=== PATIENT | female | born 1975 | race Hispanic/Latino ===

== ENCOUNTER 2016-06-11 13:04 | Observation (INO) | payer MEDICARE ==
[2016-06-11 13:04] VITALS: BMI 22.9
[2016-06-11] MEDS ORDERED: Sodium Chloride 0.9% 1,000 ML IV STA (13:29)
--- NOTE | 2016-06-11 13:32 | ED PDOC ---
Arrival/HPI - General Chief Complaint: Abdominal Pain Time Seen by Provider: 06/11/16 13:25 Historian: Patient - History of Present Illness Narrative History of Present Illness (Text): 06/11/16 14:29 Patient is a 40 yo female with past medical history of pancreatic divisum, has pancreatic stent with recent replacement 3 days ago, presents with history of upper abdominal pain, nausea/vomiting, and decreased appetite over the past three days. States pain is typical of past episodes, not changed in character or location. Denies fevers. Denies chest pain or shortness of breath. Denies hematemesis or dark or bloody stools. Past Medical History - Infectious Disease Hx of Infectious Diseases: None - Tetanus Immunization Tetanus Immunization: Unknown - Cardiac Hx Cardiac Disorders: No - Pulmonary Hx Asthma: Yes - Neurological Hx Neurological Disorder: No - HEENT Hx HEENT Disorder: Yes (wears contact lense) - Renal Hx Renal Disorder: No - Endocrine/Metabolic Hx Endocrine Disorders: No - Hematological/Oncological Hx Blood Disorders: No Hx Blood Transfusions: No Hx Blood Transfusion Reaction: No - Integumentary Hx Dermatological Disorder: No - Musculoskeletal/Rheumatological Hx Musculoskeletal Disorders: No Hx Falls: No - Gastrointestinal Hx Pancreatitis: Yes (pancreatic divisum) - Genitourinary/Gynecological Hx Genitourinary Disorders: No - Psychiatric Hx Bipolar Disorder: Yes Hx Emotional Abuse: No Hx Physical Abuse: No Hx Substance Use: No - Surgical History Other/Comment: Pancreas stent , PICC - Anesthesia Hx Anesthesia: Yes - Suicidal Assessment Feels Threatened In Home Enviroment: No Family/Social History Family/Social History: Unknown Family HX Smoking Status: Light Smoker < 10 Cigarettes Daily Hx Alcohol Use: No Hx Substance Use: No Allergies/Home Meds Allergies/Adverse Reactions: Allergies Penicillins Allergy (Verified 06/11/16 13:13) ANAPHYLAXIS Home Medications: Home Meds Medication Instructions Recorded Confirmed Control 1 tab PO DAILY 10/25/14 06/11/16 Methadone 5 mg PO BID PRN 06/11/16 06/11/16 Review of Systems - Review of Systems Constitutional: Fatigue. absent: Fevers Eyes: absent: Vision Changes ENT: absent: Hearing Changes Respiratory: absent: SOB Cardiovascular: absent: Chest Pain, NICOLAS Gastrointestinal: Abdominal Pain, Nausea, Vomiting, Appetite Changes. absent: Constipation, Diarrhea, Hematochezia, Hematemesis Musculoskeletal: absent: Back Pain Skin: absent: Rash Neurological: absent: Headache, Dizziness Endocrine: absent: Polyuria, Polydipsia Hemo/Lymphatic: absent: Easy Bleeding Physical Exam - Physical Exam Narrative Physical Exam (Text): Head: Atraumatic. Normocephalic. Eyes: PERRL. EOMI. Conjunctivae are not pale. ENT: Mucous membranes are moist and intact. Oropharynx is clear and symmetric. Neck: Supple. Full ROM. No JVD. No lymphadenopathy. Cardiovascular: Regular rate. Regular rhythm. No murmurs, rubs, or gallops. Distal pulses are 2+ and symmetric. Pulmonary/Chest: No evidence of respiratory distress. Clear to auscultation bilaterally. No wheezing, rales or rhonchi. Abdominal: Moderate epigastric pain with normoactive bowel sounds, no lower abdominal pain, no pulsatile masses. Back: No CVA tenderness. Extremities: No edema. No cyanosis. No clubbing. Full range of motion in all extremities. No calf tenderness. PICC lined in left upper extremity clean, dry and intact. Skin: Skin is warm and dry. No petechiae. No purpura. Neurological: Alert, awake, and oriented to person, place, time, and situation. Normal speech. Motor and sensory exam intact. Psychiatric: Good eye contact. Normal interaction, affect, and behavior. Vital Signs Reviewed: Yes Vital Signs Temp Pulse Resp BP Pulse Ox 06/11/16 22:03 70 16 138/77 97 06/11/16 18:01 97.5 F L 68 20 125/80 100 06/11/16 15:01 69 18 115/71 98 06/11/16 13:22 97.9 F 73 18 117/75 98 06/11/16 13:16 97.9 F 73 16 117/75 96 Temperature: Afebrile Appearance: Positive for: Uncomfortable Pain Distress: Moderate Mental Status: Positive for: Alert and Oriented X 3 Medical Decision Making ED Course and Treatment: Patient's case reviewed with Dr. Villagran, prior to arrival, who is the patient' s inspector aligning and has been following most recent symptoms. Patient's history reviewed where she has had history of chronic pancreatitis/divisum, recently with stent change. On exam she is diffusely tender, concentrated to epigastric region. NO urinary symptoms, no chest pain or sob or chills. As per Dr. Villagran, patient initiated on iv fluids and pain medication, risks/ side effects/addiction potential reviewed with patient prior to administration although patient is currently taking oral narcotics and pain has broken through. With serial exams, no improvement in pain after multiple boluses, thus CT ordered as pain still severe after medication. CT ordered: CT Abdomen and Pelvis Without Intravenous Contrast. FINDINGS: Lower thorax: Heart size is normal. Lung bases are mildly hyperinflated. There is patchy airspace disease greatest at the left base. There is minimal scarring at the lung bases ABDOMEN: Gallbladder and bile ducts: Gallbladder is surgically absent. Common bile duct is prominent. Pancreas: There are coarse calcifications in the pancreas greatest in the body and tail. There is a pancreatic stent. There is minimal peripancreatic stranding. Stomach and bowel: Stomach is almost completely empty. Rotation is normal. Proximal jejunal loops are mildly distended with air-fluid levels. Distention decreases distally. Appendix and terminal ileum are unremarkable. There is a moderately large amount of stool throughout the colon. ABDOMEN and PELVIS: Intraperitoneal space: There is no significant fluid.There is no free air. Bones/joints: There are degenerative changes in the osseus structures. Soft tissues: There is a fatcontaining umbilical hernia. Vasculature: There are multiple phleboliths. There are vascular calcifications. IMPRESSION: Chronic calcific pancreatitis with pancreatic stent, minimal peripancreatic stranding inflammation versus scarring; cholecystectomy with dilated common duct Dictated and Authenticated by: Alissa Farris MD 06/11/2016 8:23 PM Eastern Time ([place] & [place]) As patient with persistent severe pain will be admitted for observation with GI consultation, plan reviewed with Dr. Vlilagran, will admit to hospitalist. - Lab Interpretations Lab Results: 06/11/16 14:05 06/11/16 14:05 Lab Results 06/11/16 14:05: WBC 9.2, RBC 4.14, Hgb 12.8, Hct 37.2, MCV 89.9, MCH 30.9, MCHC 34.4, RDW 14.2, Plt Count 261, MPV 10.6, Gran % 63.4, Lymph % (Auto) 29.6, [place] % (Auto) 3.7, Eos % (Auto) 3.0, Baso % (Auto) 0.3, Gran # 5.83, Lymph # 2.7, [place] # 0.3, Eos # 0.3, Baso # 0.03, Sodium 137, Potassium 4.0, Chloride 104, Carbon Dioxide 24, Anion Gap 13, BUN 9, Creatinine 0.7, Est GFR ( Amer) > 60, Est GFR (Non-Af Amer) > 60, Random Glucose 105, Calcium 8.8, Total Bilirubin 0.5, AST 28, ALT 26, Alkaline Phosphatase 99, Total Protein 7.1, Albumin 3.8, Globulin 3.3, Albumin/Globulin Ratio 1.2, Amylase 40, Lipase 29 06/11/16 13:45: Urine Color Yellow, Urine Appearance Turbid, Urine pH 6.0, Ur Specific Williamson 1.025, Urine Protein 30 H, Urine Glucose (UA) Negative, Urine Ketones Trace H, Urine Blood Small H, Urine Nitrate Negative, Urine Bilirubin Small H, Urine Urobilinogen 0.2, Ur Leukocyte Esterase Trace H, Urine RBC 1 - 3 , Urine WBC 1 - 3, Ur Epithelial Cells Many, Urine Bacteria Many, Urine HCG, Qual Negative - RAD Interpretation Radiology Orders: 06/11/16 18:03 ABD & PELVIS W/O PO OR IV CONT [CT] Stat - Medication Orders Current Medication Orders: Discontinued Medications Albuterol/Ipratropium (Duoneb 3 Mg/0.5 Mg (3 Ml) Ud) 3 ml IH [id number] PRN PRN Reason: Wheezing Clonazepam (Klonopin) 0.25 mg PO Q8 PRN; Protocol PRN Reason: Anxiety Famotidine (Pepcid) 20 mg IVP STAT STA Stop: 06/11/16 13:30 Last Admin: 06/11/16 14:07 Dose: 20 MG IVP Administration Document 06/11/16 14:07 HI (Rec: 06/11/16 14:07 [id number] Charges for Administration # of IVP Administrations 1 Hydromorphone HCl (Dilaudid) 3 mg IVP STAT STA Stop: 06/11/16 13:33 Last Admin: 06/11/16 14:08 Dose: 3 MG IVP Administration Document 06/11/16 14:08 HI (Rec: 06/11/16 14:08 [id number][facility] Charges for Administration # of IVP Administrations 1 Hydromorphone HCl (Dilaudid) 3 mg IVP STAT STA Stop: 06/11/16 15:40 Last Admin: 06/11/16 15:56 Dose: 3 MG IVP Administration Document 06/11/16 15:56 HI (Rec: 06/11/16 15:56 [id number][facility] Charges for Administration # of IVP Administrations 1 Hydromorphone HCl (Dilaudid) 2 mg IVP STAT STA Stop: 06/11/16 17:20 Last Admin: 06/11/16 17:50 Dose: 2 MG IVP Administration Document 06/11/16 17:50 HI (Rec: 06/11/16 17:50 [id number][facility] Charges for Administration # of IVP Administrations 1 Hydromorphone HCl (Dilaudid) 2 mg IVP Q3 PRN PRN Reason: Pain, severe (8-10) Last Admin: 06/12/16 09:42 Dose: 2 MG MAR Pain Assessment Document 06/12/16 09:42 EVELYNE (Rec: 06/12/16 09:44 [facility] [id number]) Pain Reassessment Is this a pain reassessment? No Sleep Is patient sleeping during reassessment? No Presence of Pain Presence of Pain Yes Pain Scale Used Pain Scale Used Numeric Location Left, Right or Bilateral Left Upper or Lower Upper Pain Location Body Site Abdomen Description Description Constant Intensity of Pain at present 8 Pain Behavior Irritability Withdrawal from Touch Restlessness Facial Grimacing Alleviating Factors/Management Medication Techniques IVP Administration Document 06/12/16 09:42 EVELYNE (Rec: 06/12/16 09:44 [facility] [id number]) Charges for Administration # of IVP Administrations 1 Sodium Chloride (Sodium Chloride 0.9%) 1,000 mls @ 1,000 mls/hr IV .Q1H STA Stop: 06/11/16 14:28 Last Admin: 06/11/16 14:07 Dose: 1,000 MLS/HR eMAR Start Stop Document 06/11/16 14:07 HI (Rec: 06/11/16 14:07 [id number]) Intravenous Solution Start Date 06/11/16 Start Time 14:07 End Date 06/11/16 End time 15:07 Total Infusion Time 60 Sodium Chloride (Sodium Chloride 0.9%) 1,000 mls @ 150 mls/hr IV .Q6H40M [facility] Last Admin: 06/11/16 22:48 Dose: 150 MLS/HR eMAR Start Stop Document 06/11/16 22:48 PCO (Rec: 06/11/16 22:49 PCO [facility] [id number]) Intravenous Solution Start Date 06/11/16 Start Time 22:48 End Date 06/11/16 End time 04:50 Total Infusion Time -1078 Ondansetron HCl (Zofran Inj) 4 mg IVP STAT STA Stop: 06/11/16 13:30 Last Admin: 06/11/16 14:07 Dose: 4 MG IVP Administration Document 06/11/16 14:07 HI (Rec: 06/11/16 14:07 HI [id number]) Charges for Administration # of IVP Administrations 1 Ondansetron HCl (Zofran Inj) 4 mg IVP Q6 PRN PRN Reason: Nausea/Vomiting Last Admin: 06/12/16 06:32 Dose: 4 MG IVP Administration Document 06/12/16 06:32 PCO (Rec: 06/12/16 06:32 PCO [id number]) Charges for Administration # of IVP Administrations 1 Oxycodone HCl (Oxycodone Immediate Release Tab) 20 mg PO Q6H PRN PRN Reason: Pain, severe (8-10) Pantoprazole Sodium (Protonix Inj) 40 mg IVP DAILY [facility] Last Admin: 06/12/16 09:45 Dose: 40 MG IVP Administration Document 06/12/16 09:45 EVELYNE (Rec: 06/12/16 09:45 [id number]) Charges for Administration # of IVP Administrations 1 Quetiapine Fumarate (Seroquel) 200 mg PO DAILY RODOLFO PRN Reason: Protocol Last Admin: 06/12/16 09:44 Dose: 200 MG Behavioural Document 06/12/16 09:44 EVELYNE (Rec: 06/12/16 09:44 [id number]) Maintenance Maintenance Dose Yes Nonmedicinal Nonmedicinal Interventions Redirect Therapeutic Communication Give food/fluids Behavior Behavior for Medication: Anxiety Simethicone (Mylicon Liq) 40 mg PO QID PRN PRN Reason: Dyspepsia - Scribe Statement The provider has reviewed the documentation as recorded by the Rachide Rex Krishnan All medical record entries made by the Migdalia were at my direction and personally dictated by me. I have reviewed the chart and agree that the record accurately reflects my personal performance of the history, physical exam, medical decision making, and the department course for this patient. I have also personally directed, reviewed, and agree with the discharge instructions and disposition. Disposition/Present on Arrival - Present on Arrival Any Indicators Present on Arrival: No History of DVT/PE: No History of Uncontrolled Diabetes: No Urinary Catheter: No History of Decub. Ulcer: No History Surgical Site Infection Following: None - Disposition Have Diagnosis and Disposition been Completed?: Yes Diagnosis: Pancreatitis Disposition: HOSPITALIZED Disposition Time: 17:13 Patient Plan: Discharge Condition: GOOD
[2016-06-11 14:05] LABS: URINE APPEARANCE TURBID (CLEAR); URINE BILIRUBIN SMALL (NEGATIVE); URINE BLOOD SMALL (NEGATIVE); URINE COLOR YELLOW (YELLOW); URINE GLUCOSE (UA) NEGATIVE (NEGATIVE); URINE KETONE TRACE mg/dL (NEGATIVE); URINE LEUKOCYTE ESTERASE TRACE Leu/uL (NEGATIVE); URINE PROTEIN 30 mg/dL (<30 mg/dL); URINE UROBILINOGEN 0.2 E.U./dL (<1 E.U./dL)
[2016-06-11 14:07] LABS: URINE BACTERIA MANY (NEG); URINE EPITHELIAL CELLS MANY /hpf (0-5)
[2016-06-11 14:21] LABS: ADD MANUAL DIFF? NO
[2016-06-11 14:26] LABS: BASO # 0.03 [, K/mm3] (0.0-2.0); BASO % 0.3 % (0.0-3.0); EOS # 0.3 (0.0-0.7); GRAN # 5.83 (1.4-6.5); GRAN % 63.4 % (50.0-68.0); HEMATOCRIT 37.2 % (36.0-48.0); LYMPH # 2.7 (1.2-3.4); LYMPH % 29.6 % (22.0-35.0); MEAN CELL VOLUME 89.9 fL (80.0-105.0); MEAN CORPUSCULAR HEMOGLOBIN 30.9 pg (25.0-35.0); MEAN CORPUSCULAR HGB CONC 34.4 g/dl (31.0-37.0); MEAN PLATELET VOLUME 10.6 fl (7.0-11.0); MONO # 0.3 (0.1-0.6); MONO % 3.7 % (1.0-6.0); PLATELET COUNT 261 [, 10^3/uL] (120.0-450.0); RED CELL DISTRIBUTION WIDTH 14.2 % (11.5-14.5); WHITE BLOOD COUNT 9.2 [, 10^3/ul] (4.5-11.0)
[2016-06-11 14:35] LABS: ALB/GLOB RATIO 1.2 (1.1-1.8); ALKALINE PHOSPHATASE 99 U/L (38-133); ALT/SGPT 26 U/L (7-56); AMYLASE 40 U/L (35-125); AST/SGOT 28 U/L (15-39); BILIRUBIN,TOTAL 0.5 mg/dL (0.2-1.3); BLOOD UREA NITROGEN 9 mg/dL (7-21); CALCIUM 8.8 mg/dL (8.4-10.5); CARBON DIOXIDE 24 mmol/L (21-33); CHLORIDE 104 mmol/L (98-107); GFR AFRICAN-AMERICAN > 60; GLUCOSE,RANDOM 105 mg/dL (70-110); LIPASE 29 U/L (23-300); SODIUM 137 mmol/L (132-148); TOTAL PROTEIN 7.1 g/dL (5.8-8.3)
[2016-06-11] MEDS ORDERED: HYDROmorphone 2 mg/ml ISec IVP STA ×2 (15:32→17:19)
--- NOTE | 2016-06-11 19:40 | CP.PCM.HP ---
<Shaina Reynaga - Last Filed: 06/12/16 01:52> History of Present Illness - History of Present Illness History of Present Illness: PGY-[address] Barron Admission: Mild Acute on chronic pancreatis Patient is a 40 yo female with past medical history of pancreatic divisum at , has pancreatic stent with recent replacement 3 days ago and PICC 4 days ago, presents with worsening of chronic upper abdominal pain, (+) nausea, no vomiting, and decreased appetite over the past three days. Pt States that at baseline, abdominal pain localizes at LUQ, sharp, constant, 4-6/10 in pain scale. This am the pain suddenly worsened to 8-10/10, not changed in character or location. Pt called her outpt GI doc Dr. Villagran who adviced pt to come to ED. (+) sick contact, daughter strep throat. Denies recent change in medications , recent travel, change in food. In the ED, VSS. CBC, CMP all wnl. Amylase, lipase normal. Proteinura, blood in urine, many epithelial cell Pain controlled by dilaudid 3mg. CT Abdomen - ROS = Denies Fever. Denies chest pain or shortness of breath. Denies hematemesis or dark or bloody stools. PMH pancreatic divisum at Chronic pancreatitis Asthma Bipolar, anxiety contact lens PSH Pancreas stent replacment @ month, PICC OBGYN 1 elective , 1 live via vaginal delivery No period, on Oral contraceptive SH Active smoker 1 pack per week x recent years + electronic cigareete 1 once daily Past 10 years 1-2ppd Denies alcohol/drug All Penicillin Med Microgestin 1 tab PO DAILY Methadone [Methadone] 5 mg PO BID PRN Oxydodone 20 q6 PRN Duoneb 3q4 PRN Klonopin 0.5 TID PRN Simethicone 40 mg QID PRN Seroquel 200 daily Zofran 4q4 PRN PMD/GI Dr Villagran Present on Admission - Present on Admission Any Indicators Present on Admission: No Past Patient History - Infectious Disease Hx of Infectious Diseases: None - Tetanus Immunizations Tetanus Immunization: Unknown - Past Medical History & Family History Past Medical History?: Yes - Past Social History Smoking Status: Light Smoker < 10 Cigarettes Daily - CARDIAC Hx Cardiac Disorders: No - PULMONARY Hx Asthma: Yes - NEUROLOGICAL Hx Neurological Disorder: No - HEENT Hx HEENT Problems: Yes (wears contact lense) - RENAL Hx Chronic Kidney Disease: No - ENDOCRINE/METABOLIC Hx Endocrine Disorders: No - HEMATOLOGICAL/ONCOLOGICAL Hx Blood Disorders: No Hx Blood Transfusions: No Hx Blood Transfusion Reaction: No - INTEGUMENTARY Hx Dermatological Problems: No - MUSCULOSKELETAL/RHEUMATOLOGICAL Hx Musculoskeletal Disorders: No Hx Falls: No - GASTROINTESTINAL Hx Pancreatitis: Yes (pancreatic divisum) - GENITOURINARY/GYNECOLOGICAL Hx Genitourinary Disorders: No - PSYCHIATRIC Hx Bipolar Disorder: Yes Hx Emotional Abuse: No Hx Physical Abuse: No Hx Substance Use: No - SURGICAL HISTORY Other/Comment: Pancreas stent , PICC - ANESTHESIA Hx Anesthesia: Yes Meds Allergies/Adverse Reactions: Allergies Allergy/AdvReac Type Severity Reaction Status Date / Time Penicillins Allergy ANAPHYLAXIS Verified 06/11/16 13:13 Physical Exam - Constitutional Appears: No Acute Distress - Head Exam Head Exam: ATRAUMATIC, NORMOCEPHALIC - Eye Exam Eye Exam: EOMI, Normal appearance Pupil Exam: NORMAL ACCOMODATION - ENT Exam ENT Exam: Mucous Membranes Moist - Neck Exam Neck exam: Positive for: Normal Inspection Additional comments: supple - Respiratory Exam Respiratory Exam: Clear to Auscultation Bilateral, NORMAL BREATHING PATTERN. absent: Rales, Rhonchi, Wheezes - Cardiovascular Exam Cardiovascular Exam: REGULAR RHYTHM, +S1, +S2. absent: Systolic Murmur - GI/Abdominal Exam GI & Abdominal Exam: Normal Bowel Sounds, Soft, Tenderness (LUQ). absent: Guarding, Hernia, Rigid Additional comments: negative rovsing, mcburney, ellison - Extremities Exam Extremities exam: Positive for: normal capillary refill, normal inspection, pedal pulses present. Negative for: pedal edema - Back Exam Back exam: absent: CVA tenderness (L), CVA tenderness (R) - Neurological Exam Neurological exam: Alert, Oriented x3 - Psychiatric Exam Psychiatric exam: Normal Affect, Normal Mood - Skin Skin Exam: Dry, Warm Results - Vital Signs Recent Vital Signs: Last Vital Signs Temp 97.5 F L 06/11/16 18:01 Pulse 68 06/11/16 18:01 Resp 20 06/11/16 18:01 BP 125/80 06/11/16 18:01 Pulse Ox 100 06/11/16 18:01 - Labs Result Diagrams: 06/11/16 14:05 06/11/16 14:05 Assessment & Plan - Assessment and Plan (Free Text) Plan: Patient is a 40 yo female with past medical history of asthma, pancreatic divisum at , has pancreatic stent with recent replacement 3 days ago and PICC 4 days ago, presents with worsening of chronic upper abdominal pain, (+) nausea, no vomiting, and decreased appetite over the past three days. Acute on chronic Pancreatitis - Observe off antibiotcs - IVF Abdominal Pain - NPO today - Clear liquid diet AM - IVF 150 cc - zofran PRN - dialud 1 for moderate, 2 for severe pain, q 3 prn - GI consult - Dr. Mckay - Hold home pain mds Anxiety - klonopin 0.25 q8h PRN Hx asthma - duoneb PRN Prophylaxis - IV protonix - SCD S/R/D/w Dr. Barron - Date & Time Date: 06/11/16 Time: 20:40 <Jeffrey Barron Q - Last Filed: 06/12/16 02:24> Results - Vital Signs Recent Vital Signs: Last Vital Signs Temp 98 F 06/11/16 22:59 Pulse 50 L 06/11/16 22:59 Resp 16 06/11/16 22:59 BP 131/75 06/11/16 22:59 Pulse Ox 97 06/11/16 22:03 - Labs Result Diagrams: 06/11/16 14:05 06/11/16 14:05 Attending/Attestation - Attestation I have personally seen and examined this patient.: Yes I have fully participated in the care of the patient.: Yes I have reviewed all pertinent clinical information: Yes
--- NOTE | 2016-06-11 20:23 | CT ---
EXAM: CT Abdomen and Pelvis Without Intravenous Contrast. CLINICAL HISTORY: 40 years old, female; Condition or disease; Pancreatic condition; Pancreatitis; Additional info: Pancreatitis with stent TECHNIQUE: Axial computed tomography images of the abdomen and pelvis without intravenous contrast. This CT exam was performed using one or more of the following dose reduction techniques: automated exposure control, adjustment of the mA and/or kV according to patient size, and/or use of iterative reconstruction technique. Coronal and sagittal reformatted images were created and reviewed. EXAM DATE/TIME: 06/11/2016 6:03 PM COMPARISON: There are no prior studies for comparison. FINDINGS: Lower thorax: Heart size is normal. Lung bases are mildly hyperinflated. There is patchy airspace disease greatest at the left base. There is minimal scarring at the lung bases ABDOMEN: Liver: unremarkable Gallbladder and bile ducts: Gallbladder is surgically absent. Common bile duct is prominent. Pancreas: There are coarse calcifications in the pancreas greatest in the body and tail. There is a pancreatic stent. There is minimal peripancreatic stranding. Spleen: unremarkable Adrenals: unremarkable Kidneys and ureters: unremarkable Stomach and bowel: Stomach is almost completely empty. Rotation is normal. Proximal jejunal loops are mildly distended with air-fluid levels. Distention decreases distally. Appendix and terminal ileum are unremarkable. There is a moderately large amount of stool throughout the colon. Appendix: See above. PELVIS: Bladder: unremarkable Reproductive: Uterus and adnexal structures are unremarkable. ABDOMEN and PELVIS: Intraperitoneal space: There is no significant fluid.There is no free air. Bones/joints: There are degenerative changes in the osseus structures. Soft tissues: There is a fat-containing umbilical hernia. Vasculature: There are multiple phleboliths. There are vascular calcifications. Lymph nodes: There is no pathologic adenopathy. IMPRESSION: Chronic calcific pancreatitis with pancreatic stent, minimal peripancreatic stranding inflammation versus scarring; cholecystectomy with dilated common duct Additional findings as described above.
[2016-06-11] MEDS ORDERED: HYDROmorphone 1 mg/ml ISec IVP PRN (20:52)
[2016-06-11] MEDS ORDERED: Albuterol-Ipratrop 3 mg / 0.5 (3 ml) UD IH PRN (20:57)
[2016-06-11] MEDS ORDERED: Sodium Chloride 0.9% 1,000 ML IV SCH (21:00)
[2016-06-11] MEDS: HYDROmorphone 2 mg/ml ISec IVP PRN (21:27)
[2016-06-11 23:16] VITALS: BP 131/75; TEMP 98
[2016-06-12] MEDS: HYDROmorphone 2 mg/ml ISec IVP PRN ×4 (00:16→09:42)
[2016-06-12] MEDS ORDERED: Simethicone 40 mg/0.6 ml Liquid (30 ml) PO PRN (06:00)
--- NOTE | 2016-06-12 07:19 | CON ---
DATE: 06/12/2016 I examined the patient this morning. 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 I reviewed this case with Dr. Candice Moss in the Emergency Room yesterday. The patient recently had a pancreatic duct stent replaced by a [place] [facility]; subsequently experienced exacerbation of abdominal pain with nausea and vomiting. This stent exchange is done on a periodic basis. In discussion with the patient prior to coming into the Emergency Room yesterday indicated that the pain was out of control. Abdomen was distended and she had a significant degree of nausea and vomiting. The patient was advised to come to the Emergency Room. Even though the labs were noncontributory yesterday, in discussion with Dr. Moss, it was decided to have the patient admitted due to issues regarding severe fluid depletion and possible pancreatitis exacerbation. This was pointed out by performance of a CT scan, which I will elaborate on later. In discussion with the patient at the bedside this morning, the patient indicates decreased abdominal distention. No fever. Pain is less and she is able to handle small volumes of clears. She is able to walk around as well. Analgesic control is apparently adequate. Nausea has decreased somewhat as well. PHYSICAL EXAMINATION: VITAL SIGNS: I reviewed this patient's vital signs. HEENT: Significant for dry mouth. LUNGS: Exhibited diffuse wheezes. HEART: Regular rhythm. ABDOMEN: Significant for being apparently less distended than yesterday. She is tender in the left paraumbilical and the epigastric area; however, the other quadrants were noncontributory. There is also very mild periumbilical distention. I reviewed the CT images this morning. CAT scan indicates mildly hyperinflated lungs. The gallbladder is absent with dilatation of a bile duct which she has had in the past due to cholecystectomy. There are calcifications in the pancreas, but no pseudocyst and the pancreatic stent is noted. There are small bowel air-fluid levels probably in the proximal jejunum. There is evidence of mild fecal impaction probably based on pancreatitis issue. OVERALL ASSESSMENT: This is a 40-year-old white female with history of pancreas divisum apparently experienced exacerbation of severe pancreatitis after recent pancreatic duct stent insertion. The patient has improved dramatically after fluids which are currently at the rate of 150 an hour. I would tend to continue her on this rate until she is discharged. Usually, when she presents with pancreatitis. there is a significant amount of fluid depletion. At the current time point, her urine output is not where it is optimally; however, this should improve throughout the day today. Analgesic control is adequate on 2 q. 3; however, if she continues to breakthrough, one may consider increasing up to 3 IV every 3 hours Dilaudid. Note that in addition to her standard oxycodone and OxyContin for chronic pain control at home, she has been on periodic pulse dose of methadone. Combination therapy works better in this patient. The patient is also on a PPI. The patient has diffuse wheezes. I asked her if she wished a respiratory treatment at bedside, but she deferred and opted for her inhaler instead. When house staff makes rounds this morning, they may consider a respiratory treatment if she is still having some respiratory difficulty. The house staff has increased the patient to a liquid diet. Advised very, very small volumes of clear liquid only at the current time point. It is a possibility that if she is able to handle small volumes of clears, she may be able to go home today. That is assuming that the nausea, vomiting and pain issues are not inhibitory. She will make a decision later on today. Coleman Villagran DO, PhD cc: [id number] TT: 06/12/2016 07:18:37 Confirmation # [id number] Dictation # [id number] corby LEES
[2016-06-12 07:52] VITALS: PULSE 54; RESP 20; O2SAT 96
[2016-06-12] MEDS ORDERED: oxyCODONE 20 mg Immediate Release Tab PO PRN (10:43)
--- NOTE | 2016-06-12 12:22 | CP.PCM.DIS ---
<Kuldeep Cardoso - Last Filed: 06/12/16 16:31> Provider - Provider Date of Admission: 06/11/16 18:34 Attending physician: Carley Corado MD Primary care physician: Coleman Villagran DO Consults: SADA: Sparkle Time Spent in preparation of Discharge (in minutes): 45 Hospital Course - Lab Results Lab Results: Most Recent Lab Values WBC 9.2 10^3/ul (4.5-11.0) 06/11/16 14:05 RBC 4.14 10^6/uL (3.5-6.1) 06/11/16 14:05 Hgb 12.8 gm/dL (12.0-16.0) 06/11/16 14:05 Hct 37.2 % (36.0-48.0) 06/11/16 14:05 MCV 89.9 fL (80.0-105.0) 06/11/16 14:05 MCH 30.9 pg (25.0-35.0) 06/11/16 14:05 MCHC 34.4 g/dl (31.0-37.0) 06/11/16 14:05 RDW 14.2 % (11.5-14.5) 06/11/16 14:05 Plt Count 261 10^3/uL (120.0-450.0) 06/11/16 14:05 MPV 10.6 fl (7.0-11.0) 06/11/16 14:05 Gran % 63.4 % (50.0-68.0) 06/11/16 14:05 Lymph % (Auto) 29.6 % (22.0-35.0) 06/11/16 14:05 [place] % (Auto) 3.7 % (1.0-6.0) 06/11/16 14:05 Eos % (Auto) 3.0 % (1.5-5.0) 06/11/16 14:05 Baso % (Auto) 0.3 % (0.0-3.0) 06/11/16 14:05 Gran # 5.83 (1.4-6.5) 06/11/16 14:05 Lymph # 2.7 (1.2-3.4) 06/11/16 14:05 [place] # 0.3 (0.1-0.6) 06/11/16 14:05 Eos # 0.3 (0.0-0.7) 06/11/16 14:05 Baso # 0.03 K/mm3 (0.0-2.0) 06/11/16 14:05 Sodium 137 mmol/L (132-148) 06/11/16 14:05 Potassium 4.0 mmol/L (3.6-5.0) 06/11/16 14:05 Chloride 104 mmol/L (98-107) 06/11/16 14:05 Carbon Dioxide 24 mmol/L (21-33) 06/11/16 14:05 Anion Gap 13 (10-20) 06/11/16 14:05 BUN 9 mg/dL (7-21) 06/11/16 14:05 Creatinine 0.7 mg/dL (0.5-1.4) 06/11/16 14:05 Est GFR ( Amer) > 60 06/11/16 14:05 Est GFR (Non-Af Amer) > 60 06/11/16 14:05 Random Glucose 105 mg/dL (70-110) 06/11/16 14:05 Calcium 8.8 mg/dL (8.4-10.5) 06/11/16 14:05 Total Bilirubin 0.5 mg/dL (0.2-1.3) 06/11/16 14:05 AST 28 U/L (15-39) 06/11/16 14:05 ALT 26 U/L (7-56) 06/11/16 14:05 Alkaline Phosphatase 99 U/L (38-133) 06/11/16 14:05 Total Protein 7.1 g/dL (5.8-8.3) 06/11/16 14:05 Albumin 3.8 g/dL (3.0-4.8) 06/11/16 14:05 Globulin 3.3 gm/dL 06/11/16 14:05 Albumin/Globulin Ratio 1.2 (1.1-1.8) 06/11/16 14:05 Amylase 40 U/L (35-125) 06/11/16 14:05 Lipase 29 U/L (23-300) 06/11/16 14:05 Urine Color Yellow (YELLOW) 06/11/16 13:45 Urine Appearance Turbid (CLEAR) 06/11/16 13:45 Urine pH 6.0 (4.7-8.0) 06/11/16 13:45 Ur Specific [place] 1.025 (1.005-1.035) 06/11/16 13:45 Urine Protein 30 mg/dL (<30 mg/dL) H 06/11/16 13:45 Urine Glucose (UA) Negative mg/dL (NEGATIVE) 06/11/16 13:45 Urine Ketones Trace mg/dL (NEGATIVE) H 06/11/16 13:45 Urine Blood Small (NEGATIVE) H 06/11/16 13:45 Urine Nitrate Negative (NEGATIVE) 06/11/16 13:45 Urine Bilirubin Small (NEGATIVE) H 06/11/16 13:45 Urine Urobilinogen 0.2 E.U./dL (<1 E.U./dL) 06/11/16 13:45 Ur Leukocyte Esterase Trace Enma/uL (NEGATIVE) H 06/11/16 13:45 Urine RBC 1 - 3 /hpf (0-2) 06/11/16 13:45 Urine WBC 1 - 3 /hpf (0-6) 06/11/16 13:45 Ur Epithelial Cells Many /hpf (0-5) 06/11/16 13:45 Urine Bacteria Many (NEG) 06/11/16 13:45 Urine HCG, Qual Negative (NEGATIVE) 06/11/16 13:45 - Hospital Course Hospital Course: Upon Admission: 40yo F with PMHx of Pancreatic divisium s/p multiple pancreatic stents with repacement (last one 3 days ago) here for evaluation of worsening chronic Upper Abdominal pain. Amylase and lipase were wnl. CT showed evidence of chronic pancreatitis, and stent, minimal peripancreatic stranding. Patient was started on agressive IVF hydration using the PICC line that she came in with, placed 4 days ago at [facility]. Patient received IV analgesics overnight. Patient status was much improved the next morning. Dr. Villagran, patient's outpatient GI evaluated the patient and recommended slowing advancing diet as tolerated. Patient states that she feels much better and would like to be discharged today. She was advised to advance her diet very cautiously and to stay well hydrated. Patient requested to keep her PICC line in as she came in with it. Detailed discussion was had with Dr. Villagran, who states that he knows the patient very well, and has been treating the patient for the past 10 years. He states that the patient is very low risk for IV drug abuse. It was deemed that the patient may keep the PICC line due to poor venous access. Patient was advised to follow up with her out-patient physicians for continued management. She was advised to discontinue smoking ciggaretts as soon as possible. Detailed discussion was had with patient about the risks of keeping the PICC line, all of the patient's questions were answered. Patient states that Dr. Villagran manages her pain as out-patient and states that she has all her pain medications and does not require any refills. She was deemed stable for discharge with close follow up with her physicians. Patient agrees with plan. 1. Acute on chronic pancreatitis. improved. Advance diet slowly and cautiously. Follow up with out-patient GI 2. Anxiety. continue home meds 3. Tobacco abuse. Cessation counseling 4. Hx of Asthma. Continue home meds Upon Discharge: You have been admitted to the hospital for Abdominal pain. Return to the nearest emergency room if symptoms worsen. Follow up with primary medical doctor in one week. Patient is cleared for discharge as per Dr. Corado 1. Follow up with your Primary Care Physician in 2-3 days 2. Follow up with Dr. Mcgraw in 2-3 days 3. Advance diet slowly as tolerated. Stay well hydrated 4. Resume all home medications. Use pain medications sparingly, as directed, as tolerated. Patient does not require any new prescriptions. 5. Return to the ER with any concerning symptoms No New Prescriptions. Discharge Exam - Head Exam Head Exam: ATRAUMATIC, NORMAL INSPECTION, NORMOCEPHALIC - Eye Exam Eye Exam: EOMI, Normal appearance, PERRL. absent: Scleral icterus Pupil Exam: PERRL - ENT Exam ENT Exam: Mucous Membranes Moist - Neck Exam Neck exam: Full Rom - Respiratory Exam Respiratory Exam: Clear to PA & Lateral, NORMAL BREATHING PATTERN, UNREMARKABLE. absent: Decreased Breath Sounds, Respiratory Distress - Cardiovascular Exam Cardiovascular Exam: REGULAR RHYTHM, RRR, +S1, +S2. absent: JVD - GI/Abdominal Exam GI & Abdominal Exam: Normal Bowel Sounds, Soft Additional comments: mild tenderness to palpation RUQ - Extremities Exam Extremities exam: normal inspection - Back Exam Back exam: NORMAL INSPECTION - Neurological Exam Neurological exam: Alert, CN II-XII Intact, Normal Gait, Oriented x3 - Psychiatric Exam Psychiatric exam: Normal Affect, Normal Mood - Skin Skin Exam: Dry, Intact, Normal Color, Warm Discharge Plan - Follow Up Plan Condition: GOOD Disposition: HOME/ ROUTINE Instructions: Pancreatitis (DC), Pneumococcal Vaccine for Adults (DC), Influenza Vaccine (DC), Abdominal Pain (ED) Additional Instructions: You have been admitted to the hospital for Abdominal pain. Return to the nearest emergency room if symptoms worsen. Follow up with primary medical doctor in one week. Patient is cleared for discharge as per Dr. Corado 1. Follow up with your Primary Care Physician in 2-3 days 2. Follow up with Dr. Mcgraw in 2-3 days 3. Advance diet slowly as tolerated. Stay well hydrated 4. Resume all home medications. Use pain medications sparingly, as directed, as tolerated. Patient does not require any new prescriptions. 5. Return to the ER with any concerning symptoms No New Prescriptions. Referrals: Coleman Villagran DO [Primary Care Provider] - <Carley Corado MD - Last Filed: 06/12/16 17:39> Provider - Provider Date of Admission: 06/11/16 18:34 Attending physician: Carley Corado MD Primary care physician: Coleman Villagran DO Hospital Course - Lab Results Lab Results: Most Recent Lab Values WBC 9.2 10^3/ul (4.5-11.0) 06/11/16 14:05 RBC 4.14 10^6/uL (3.5-6.1) 06/11/16 14:05 Hgb 12.8 gm/dL (12.0-16.0) 06/11/16 14:05 Hct 37.2 % (36.0-48.0) 06/11/16 14:05 MCV 89.9 fL (80.0-105.0) 06/11/16 14:05 MCH 30.9 pg (25.0-35.0) 06/11/16 14:05 MCHC 34.4 g/dl (31.0-37.0) 06/11/16 14:05 RDW 14.2 % (11.5-14.5) 06/11/16 14:05 Plt Count 261 10^3/uL (120.0-450.0) 06/11/16 14:05 MPV 10.6 fl (7.0-11.0) 06/11/16 14:05 Gran % 63.4 % (50.0-68.0) 06/11/16 14:05 Lymph % (Auto) 29.6 % (22.0-35.0) 06/11/16 14:05 [place] % (Auto) 3.7 % (1.0-6.0) 06/11/16 14:05 Eos % (Auto) 3.0 % (1.5-5.0) 06/11/16 14:05 Baso % (Auto) 0.3 % (0.0-3.0) 06/11/16 14:05 Gran # 5.83 (1.4-6.5) 06/11/16 14:05 Lymph # 2.7 (1.2-3.4) 06/11/16 14:05 [place] # 0.3 (0.1-0.6) 06/11/16 14:05 Eos # 0.3 (0.0-0.7) 06/11/16 14:05 Baso # 0.03 K/mm3 (0.0-2.0) 06/11/16 14:05 Sodium 137 mmol/L (132-148) 06/11/16 14:05 Potassium 4.0 mmol/L (3.6-5.0) 06/11/16 14:05 Chloride 104 mmol/L (98-107) 06/11/16 14:05 Carbon Dioxide 24 mmol/L (21-33) 06/11/16 14:05 Anion Gap 13 (10-20) 06/11/16 14:05 BUN 9 mg/dL (7-21) 06/11/16 14:05 Creatinine 0.7 mg/dL (0.5-1.4) 06/11/16 14:05 Est GFR ( Amer) > 60 06/11/16 14:05 Est GFR (Non-Af Amer) > 60 06/11/16 14:05 Random Glucose 105 mg/dL (70-110) 06/11/16 14:05 Calcium 8.8 mg/dL (8.4-10.5) 06/11/16 14:05 Total Bilirubin 0.5 mg/dL (0.2-1.3) 06/11/16 14:05 AST 28 U/L (15-39) 06/11/16 14:05 ALT 26 U/L (7-56) 06/11/16 14:05 Alkaline Phosphatase 99 U/L (38-133) 06/11/16 14:05 Total Protein 7.1 g/dL (5.8-8.3) 06/11/16 14:05 Albumin 3.8 g/dL (3.0-4.8) 06/11/16 14:05 Globulin 3.3 gm/dL 06/11/16 14:05 Albumin/Globulin Ratio 1.2 (1.1-1.8) 06/11/16 14:05 Amylase 40 U/L (35-125) 06/11/16 14:05 Lipase 29 U/L (23-300) 06/11/16 14:05 Urine Color Yellow (YELLOW) 06/11/16 13:45 Urine Appearance Turbid (CLEAR) 06/11/16 13:45 Urine pH 6.0 (4.7-8.0) 06/11/16 13:45 Ur Specific [place] 1.025 (1.005-1.035) 06/11/16 13:45 Urine Protein 30 mg/dL (<30 mg/dL) H 06/11/16 13:45 Urine Glucose (UA) Negative mg/dL (NEGATIVE) 06/11/16 13:45 Urine Ketones Trace mg/dL (NEGATIVE) H 06/11/16 13:45 Urine Blood Small (NEGATIVE) H 06/11/16 13:45 Urine Nitrate Negative (NEGATIVE) 06/11/16 13:45 Urine Bilirubin Small (NEGATIVE) H 06/11/16 13:45 Urine Urobilinogen 0.2 E.U./dL (<1 E.U./dL) 06/11/16 13:45 Ur Leukocyte Esterase Trace Enma/uL (NEGATIVE) H 06/11/16 13:45 Urine RBC 1 - 3 /hpf (0-2) 06/11/16 13:45 Urine WBC 1 - 3 /hpf (0-6) 06/11/16 13:45 Ur Epithelial Cells Many /hpf (0-5) 06/11/16 13:45 Urine Bacteria Many (NEG) 06/11/16 13:45 Urine HCG, Qual Negative (NEGATIVE) 06/11/16 13:45 Attending/Attestation - Attestation I have personally seen and examined this patient.: Yes I have fully participated in the care of the patient.: Yes I have reviewed all pertinent clinical information, including history, physical exam and plan: Yes Notes (Text): Patient was seen and examined with medical review specialist .Agreed with resident assessment and plan. Patient abdominal pain has improved.She is tolerating liquid diet and wants to go home.She was recently discharged from outside hospital with PICC line as she has poor venous access, she did not want it to out as she is concerned that she may come back to the hospital.Patient case was discussed with her primary GI by resident and he told resident that patient does not has any history of drug abuse and should be OK to go home with PICC line.This issue was discussed in detail with her.Patient promised that she would not use any drug, she is alert, awake, and understand the risk of endocarditis and blood stream infection due to mis use of PICC line. Management plan was discussed in detail with patient Education was provided.
== END 2016-06-12 13:34 | disposition home or self-care (01) ==
LOC: ED 13:04 → ERH 18:34 → 5RSO 22:41
PROVIDERS: ADMIT Internal Medicine; ATTEND Internal Medicine
DX: K85.90 Acute pancreatitis without necrosis or infection, unspecified (principal); K86.1 Other chronic pancreatitis; J45.909 Unspecified asthma, uncomplicated; F31.9 Bipolar disorder, unspecified; E86.9 Volume depletion, unspecified; F41.9 Anxiety disorder, unspecified; R31.9 Hematuria, unspecified; R10.9 Unspecified abdominal pain; K56.41 Fecal impaction; G89.29 Other chronic pain; F17.210 Nicotine dependence, cigarettes, uncomplicated; Z88.0 Allergy status to penicillin; Z87.892 Personal history of anaphylaxis; Z90.49 Acquired absence of other specified parts of digestive tract
CPT/HCPCS: 74176; 80053; 81001; 82150; 83690; 84703; 85025; 96361; 96374; 96375; 96376; 99285; C9113; G0378; J1170; J2405; J7040

== ENCOUNTER 2017-05-28 19:05 | Emergency (ER) | payer MEDICARE ==
[2017-05-28 19:05] VITALS: BMI 22.9
[2017-05-28 19:34] VITALS: RESP 18; TEMP 97.6
[2017-05-28] MEDS ORDERED: Morphine 4 mg/ml ISec IVP STA (20:00)
--- NOTE | 2017-05-28 20:01 | ED PDOC ---
Arrival/HPI <JulioEstrada - Last Filed: 05/28/17 23:27> - General Historian: Patient - History of Present Illness Time/Duration: Other (see hpi) Context: Home <Tori Rutherford - Last Filed: 05/31/17 13:42> - General Chief Complaint: Upper Extremity Problem/Injury Time Seen by Provider: 05/28/17 19:55 - History of Present Illness Narrative History of Present Illness (Text): 05/28/17 19:58 Patient is a 41 yo female with past medical history of pancreatic divisum, has pancreatic stent, presents to this ED c/o epigatsric pain, nausea, vomiting since last night. Patient also noted clear drainage from left PICC line. Patient stated she has ERCP x 4 days ago. Procedure was uneventfully. Patient denies fever, sob, cp, urinary symptoms, vaginal discharge, STD exposure, dizziness, or abnormal gait. Patient was laying on the stretcher when I entered room, in no acute distress, texting with her cellphone. (Tori Rutherford) Past Medical History - Provider Review Nursing Documentation Reviewed: Yes - Infectious Disease Hx of Infectious Diseases: None - Tetanus Immunization Tetanus Immunization: Unknown - Cardiac Hx Cardiac Disorders: No - Pulmonary Hx Asthma: Yes - Neurological Hx Neurological Disorder: No - HEENT Hx HEENT Disorder: Yes (wears contact lense) - Renal Hx Renal Disorder: No - Endocrine/Metabolic Hx Endocrine Disorders: No - Hematological/Oncological Hx Blood Disorders: No Hx Blood Transfusions: No Hx Blood Transfusion Reaction: No - Integumentary Hx Dermatological Disorder: No - Musculoskeletal/Rheumatological Hx Musculoskeletal Disorders: No Hx Falls: No - Gastrointestinal Hx Pancreatitis: Yes (pancreatic divisum) Other/Comment: Chronic Pancreatiti - s/p ERCP 05/24/2017 - Genitourinary/Gynecological Hx Genitourinary Disorders: No - Psychiatric Hx Bipolar Disorder: Yes Hx Emotional Abuse: No Hx Physical Abuse: No Hx Substance Use: No - Surgical History Other/Comment: Pancreas stent in October 2015. ERCP on 05/24/2017 - Anesthesia Hx Anesthesia: Yes - Suicidal Assessment Feels Threatened In Home Enviroment: No <Tori Rutherford - Last Filed: 05/31/17 13:42> Family/Social History - Physician Review Nursing Documentation Reviewed: Yes Family/Social History: Other (noncontributory) Smoking Status: Light Smoker < 10 Cigarettes Daily Hx Alcohol Use: No Hx Substance Use: No <Tori Rutherford - Last Filed: 05/31/17 13:42> Allergies/Home Meds <Estrada Kim - Last Filed: 05/28/17 23:27> <Tori Rutherford - Last Filed: 05/31/17 13:42> Allergies/Adverse Reactions: Allergies Penicillins Allergy (Verified 06/11/16 13:13) ANAPHYLAXIS Home Medications: Home Meds Medication Instructions Recorded Confirmed Control 1 tab PO DAILY 10/25/14 05/28/17 Sertraline [Zoloft] 1 tab PO DAILY 05/28/17 05/28/17 Review of Systems - Review of Systems Constitutional: Normal. absent: Fatigue, Weight Change, Fevers Eyes: Normal ENT: Normal Respiratory: Normal Cardiovascular: Normal Gastrointestinal: Abdominal Pain, Nausea, Vomiting Genitourinary Female: Normal Musculoskeletal: Normal Skin: Other (see hpi) Neurological: Normal Endocrine: Normal Hemo/Lymphatic: Normal Psychiatric: Normal <Tori Rutherford - Last Filed: 05/31/17 13:42> Physical Exam Temperature: Afebrile Blood Pressure: Normal Pulse: Regular Respiratory Rate: Normal Appearance: Positive for: Well-Appearing, Non-Toxic, Comfortable Pain Distress: None Mental Status: Positive for: Alert and Oriented X 3 - Systems Exam Head: Present: Atraumatic, Normocephalic Pupils: Present: PERRL Extroacular Muscles: Present: EOMI Conjunctiva: Present: Normal Mouth: Present: Moist Mucous Membranes Neck: Present: Normal Range of Motion Respiratory/Chest: Present: Clear to Auscultation, Good Air Exchange. No: Respiratory Distress, Accessory Muscle Use Cardiovascular: Present: Regular Rate and Rhythm, Normal S1, S2. No: Murmurs Abdomen: Present: Tenderness (mild epigatric tenderness), Normal Bowel Sounds. No: Distention, Peritoneal Signs Back: Present: Normal Inspection Upper Extremity: Present: Normal Inspection, Normal ROM, NORMAL PULSES, Neurovascularly Intact, Capillary Refill < 2s, Other (PICC line left arm). No: Cyanosis, Edema, Tenderness, Swelling, Erythema, Temperature Abnormalties Lower Extremity: Present: Normal Inspection. No: Edema Neurological: Present: GCS=15, CN II-XII Intact, Speech Normal Skin: Present: Warm, Dry, Normal Color. No: Rashes Psychiatric: Present: Alert, Oriented x 3, Normal Insight, Normal Concentration <Tori Rutherford - Last Filed: 05/31/17 13:42> Vital Signs Temp Pulse Resp BP Pulse Ox 05/28/17 21:05 77 18 115/74 98 05/28/17 19:19 97.6 F 75 18 105/70 96 Medical Decision Making <Estrada Kim - Last Filed: 05/28/17 23:27> - Lab Interpretations I have reviewed the lab results: Yes Interpretation: No clinic. lab abnormalty <Tori Rutherford - Last Filed: 05/31/17 13:42> ED Course and Treatment: 05/28/17 20:57 Patient requested more pain medication to nurse. When I entered patient's room , she was texting while laying on her stretcher without acute pain distress. 05/28/17 23:23 Patient is not in the room. Patient had ELOPED 05/28/17 23:[address] Villagran, PMD regarding CT findings. I told Dr. Villagran patient had ELOPED since there was nobody taking care of patient daughter. He said he will follow up patient on Tuesday. (Tori Rutherford) - Lab Interpretations Lab Results: 05/28/17 20:05 05/28/17 20:05 Lab Results 05/28/17 21:50: Urine Color Yellow, Urine Appearance Slight-cloudy, Urine pH 6.0 , Ur Specific [place] >= 1.030, Urine Protein 30 H, Urine Glucose (UA) Negative , Urine Ketones Negative, Urine Blood Small H, Urine Nitrate Negative, Urine Bilirubin Small H, Urine Urobilinogen 1.0 H, Ur Leukocyte Esterase Negative, Urine RBC 5 - 10, Urine WBC 1 - 3, Ur Epithelial Cells Many, Urine Bacteria Large, Urine HCG, Qual Negative 05/28/17 20:05: Sodium 141, Potassium 4.3, Chloride 109 H, Carbon Dioxide 23, Anion Gap 13, BUN 10, Creatinine 0.7, Est GFR ( Amer) > 60, Est GFR (Non- Af Amer) > 60, Random Glucose 94, Calcium 9.0, Total Bilirubin 0.3, AST 24, ALT 21, Alkaline Phosphatase 116, Total Protein 6.6, Albumin 3.6, Globulin 3.0, Albumin/Globulin Ratio 1.2, Lipase 39 05/28/17 20:05: WBC 9.2, RBC 4.14, Hgb 12.6, Hct 37.8, MCV 91.3, MCH 30.4, MCHC 33.3, RDW 14.3, Plt Count 288, MPV 10.7, Gran % 57.8, Lymph % (Auto) 33.7, [place] % (Auto) 4.6, Eos % (Auto) 3.5, Baso % (Auto) 0.4, Gran # 5.33, Lymph # (Auto) 3.1, [place] # (Auto) 0.4, Eos # (Auto) 0.3, Baso # (Auto) 0.04 - RAD Interpretation Narrative RAD Interpretations (Text): 05/28/17 23:24 CT Scan ABD PELVIS IV CONTRAST ONLY Exam Date: 05/28/17 FINDINGS: Lower thorax: Heart size is normal. There is a hiatal hernia. There is dependent atelectasis at the lung bases. There is minimal scarring. ABDOMEN: Liver: There is fatty infiltration of the liver. Liver is mildly enlarged Gallbladder and bile ducts: Gallbladder is surgically absent. Common duct is dilated. There is mild biliary ductal prominence. Pancreas: Tail and proximal body of the pancreas are mildly atrophic. There are coarse calcifications. There is prominence of pancreatic duct. The pancreatic stent in the body and head extending into the duodenum. Spleen: There is a low attenuation lesion in the spleen most likely cysts. Adrenals: unremarkable Kidneys and ureters: unremarkable Stomach and bowel: Stomach is incompletely distended which accentuates the gastric wall. Rotation is normal. There are mildly dilated jejunal loops in the left upper quadrant. There is fluid and air throughout the small bowel. Ileocecal region is unremarkable. Appendix and terminal ileum are unremarkable. There is moderate stool throughout the colon. Appendix: See stomach and bowel PELVIS: Bladder: unremarkable Reproductive: Uterus and adnexal structures are unremarkable. ABDOMEN and PELVIS: Intraperitoneal space: There is no significant fluid.There is no free air. Bones/joints: There are degenerative changes in the osseus structures. Soft tissues: unremarkable Vasculature: There are calcified phleboliths.There is a filling defect versus flow phenomenon in a branch of the superior mesenteric vein extending into the portal vein. There are vascular calcifications in the aorta. Lymph nodes: There is no pathologic adenopathy. 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 (Tori Rutherford) Radiology Orders: 05/28/17 20:00 CHEST PORTABLE [RAD] Stat 05/28/17 20:02 ABD & PELVIS IV CONTRAST ONLY [CT] Stat - Medication Orders Current Medication Orders: Discontinued Medications Famotidine (Pepcid) 20 mg IVP STAT STA Stop: 05/28/17 20:01 Last Admin: 05/28/17 20:18 Dose: 20 mg IVP Administration Document 05/28/17 20:18 JOL (Rec: 05/28/17 20:18 JOL [id number]) Charges for Administration # of IVP Administrations 1 Hydromorphone HCl (Dilaudid) 1 mg IVP STAT STA Stop: 05/28/17 20:54 Last Admin: 05/28/17 21:07 Dose: 1 mg MAR Pain Assessment Document 05/28/17 21:07 JOL (Rec: 05/28/17 21:07 JOL [id number]) Pain Reassessment Is this a pain reassessment? No Sleep Is patient sleeping during reassessment? No Presence of Pain Presence of Pain Yes Pain Scale Used Pain Scale Used Numeric Location Pain Location Body Site Abdomen Description Intensity of Pain at present 7 IVP Administration Document 05/28/17 21:07 JOL (Rec: 05/28/17 21:07 JOL [id number]) Charges for Administration # of IVP Administrations 1 Sodium Chloride (Sodium Chloride 0.9%) 1,000 mls @ 999 mls/hr IV .Q1H1M STA Stop: 05/28/17 21:53 Last Admin: 05/28/17 21:06 Dose: 999 mls/hr eMAR Start Stop Document 05/28/17 21:06 JOL (Rec: 05/28/17 21:07 JOL [id number]) Intravenous Solution Start Date 05/28/17 Start Time 21:07 End Date 03/10/18 End time 22:07 Total Infusion Time 60 Morphine Sulfate (Morphine) 4 mg IVP STAT STA Stop: 05/28/17 20:01 Last Admin: 05/28/17 20:18 Dose: 4 mg MAR Pain Assessment Document 05/28/17 20:18 JOL (Rec: 05/28/17 20:18 JOL [id number]) Pain Reassessment Is this a pain reassessment? No Sleep Is patient sleeping during reassessment? No Presence of Pain Presence of Pain Yes Pain Scale Used Pain Scale Used Numeric Location Pain Location Body Site Abdomen Description Intensity of Pain at present 9 IVP Administration Document 05/28/17 20:18 JOL (Rec: 05/28/17 20: JOL [id number]) Charges for Administration # of IVP Administrations 1 Ondansetron HCl (Zofran Inj) 4 mg IVP STAT STA Stop: 05/28/17 20:01 Last Admin: 05/28/17 20:18 Dose: 4 mg IVP Administration Document 05/28/17 20:18 JOL (Rec: 05/28/17 20:18 JOL [id number]) Charges for Administration # of IVP Administrations 1 - PA / [employer] SAL[employer] ADVISOR / Resident Statement / has reviewed & agrees with the documentation as recorded. <Estrada Kim - Last Filed: 05/28/17 23:27> Disposition/Present on Arrival <Estrada Kim - Last Filed: 05/28/17 23:27> - Present on Arrival Any Indicators Present on Arrival: No History of DVT/PE: No History of Uncontrolled Diabetes: No Urinary Catheter: No History of Decub. Ulcer: No History Surgical Site Infection Following: None - Disposition Have Diagnosis and Disposition been Completed?: Yes Disposition Time: 23:38 <Tori Rutherford - Last Filed: 05/31/17 13:42> - Disposition Diagnosis: Abdominal pain, Abnormal finding on CT scan Disposition: ELOPEMENT - ER ONLY Condition: UNKNOWN Referrals: Coleman Villagran DO [Primary Care Provider] - Follow up with primary Forms: [employer] ([place])
[2017-05-28 20:42] LABS: BASO # 0.04 K/mm3 (0.0-2.0); BASO % 0.4 % (0.0-3.0); EOS # 0.3 (0.0-0.7); EOS % 3.5 % (1.5-5.0); GRAN # 5.33 (1.4-6.5); GRAN % 57.8 % (50.0-68.0); HEMOGLOBIN 12.6 g/dL (12.0-16.0); LYMPH # 3.1 (1.2-3.4); LYMPH % 33.7 % (22.0-35.0); MEAN CELL VOLUME 91.3 fl (80.0-105.0); MEAN CORPUSCULAR HEMOGLOBIN 30.4 pg (25.0-35.0); MEAN CORPUSCULAR HGB CONC 33.3 g/dl (31.0-37.0); MEAN PLATELET VOLUME 10.7 fl (7.0-11.0); MONO # 0.4 (0.1-0.6); MONO % 4.6 % (1.0-6.0); RBC 4.14 10^6/uL (3.5-6.1); RED CELL DISTRIBUTION WIDTH 14.3 % (11.5-14.5); WHITE BLOOD COUNT 9.2 10^3/ul (4.5-11.0)
[2017-05-28] MEDS ORDERED: Sodium Chloride 0.9% 1,000 ML IV STA (20:53)
[2017-05-28] MEDS ORDERED: HYDROmorphone 1 mg/ml ISec IVP STA (20:53)
[2017-05-28 21:03] LABS: ALB/GLOB RATIO 1.2 (1.1-1.8); ALBUMIN 3.6 g/dL (3.0-4.8); GFR AFRICAN-AMERICAN > 60; GFR NON-AFRICAN AMERICAN > 60; LIPASE 39 U/L (23-300)
[2017-05-28 21:18] LABS: ALT/SGPT 21 U/L (7-56); AST/SGOT 24 U/L (14-36); BLOOD UREA NITROGEN 10 mg/dL (7-21)
[2017-05-28] MEDS ORDERED: Iohexol 350 MG/100 ML VIAL ONE (21:49)
[2017-05-28 22:11] LABS: URINE BILIRUBIN SMALL (NEGATIVE); URINE BLOOD SMALL (NEGATIVE); URINE GLUCOSE (UA) NEGATIVE (NEGATIVE); URINE LEUKOCYTE ESTERASE NEGATIVE Leu/uL (NEGATIVE); URINE PROTEIN 30 mg/dL (<30 mg/dL)
[2017-05-28 22:13] LABS: URINE APPEARANCE SLIGHT-CLOUDY (CLEAR); URINE COLOR YELLOW (YELLOW)
[2017-05-28 22:24] LABS: HCG,QUALITATIVE URINE NEGATIVE (NEGATIVE); URINE BACTERIA LARGE (NEG); URINE EPITHELIAL CELLS MANY /hpf (0-5)
[2017-05-28 22:42] VITALS: BP 115/74; PULSE 77; O2SAT 98
--- NOTE | 2017-05-28 23:12 | CT ---
EXAM: CT Abdomen and Pelvis With Intravenous Contrast EXAM DATE/TIME: 05/28/2017 8:02 PM CLINICAL HISTORY: 41 years old, female; Pain; Other: Epigastric pain; Prior surgery; Surgery date: 6+ months; Surgery type: Cholecystectomy TECHNIQUE: Axial computed tomography images of the abdomen and pelvis with intravenous contrast. All CT scans at this facility use one or more dose reduction techniques, viz.: automated exposure control; ma/kV adjustment per patient size (including targeted exams where dose is matched to indication; i.e. head); or iterative reconstruction technique. Coronal and sagittal reformatted images were created and reviewed. CONTRAST: 100 mL of OMNIPAQUE 350 administered intravenously. COMPARISON: CT - ABD PELVIS W/O PO OR IV CONT 2016-06-11 19:30 FINDINGS: Lower thorax: Heart size is normal. There is a hiatal hernia. There is dependent atelectasis at the lung bases. There is minimal scarring. ABDOMEN: Liver: There is fatty infiltration of the liver. Liver is mildly enlarged Gallbladder and bile ducts: Gallbladder is surgically absent. Common duct is dilated. There is mild biliary ductal prominence. Pancreas: Tail and proximal body of the pancreas are mildly atrophic. There are coarse calcifications. There is prominence of pancreatic duct. The pancreatic stent in the body and head extending into the duodenum. Spleen: There is a low attenuation lesion in the spleen most likely cysts. Adrenals: unremarkable Kidneys and ureters: unremarkable Stomach and bowel: Stomach is incompletely distended which accentuates the gastric wall. Rotation is normal. There are mildly dilated jejunal loops in the left upper quadrant. There is fluid and air throughout the small bowel. Ileocecal region is unremarkable. Appendix and terminal ileum are unremarkable. There is moderate stool throughout the colon. Appendix: See stomach and bowel PELVIS: Bladder: unremarkable Reproductive: Uterus and adnexal structures are unremarkable. ABDOMEN and PELVIS: Intraperitoneal space: There is no significant fluid.There is no free air. Bones/joints: There are degenerative changes in the osseus structures. Soft tissues: unremarkable Vasculature: There are calcified phleboliths.There is a filling defect versus flow phenomenon in a branch of the superior mesenteric vein extending into the portal vein. There are vascular calcifications in the aorta. Lymph nodes: There is no pathologic adenopathy. 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
--- NOTE | 2017-05-29 12:06 | RAD ---
HISTORY: epigastric pain COMPARISON: 10/25/2014 FINDINGS: LUNGS: No active pulmonary disease. PLEURA: No significant pleural effusion identified, no pneumothorax apparent. CARDIOVASCULAR: Normal. OSSEOUS STRUCTURES: No significant abnormalities. VISUALIZED UPPER ABDOMEN: Normal. OTHER FINDINGS: None. IMPRESSION: No active disease. No significant interval change compared to the prior examination(s). Concordant results with the preliminary interpretation rendered by the emergency department physician procedure.
== END 2017-05-28 22:45 | disposition left against medical advice (07) ==
LOC: ED 19:05
DX: R10.9 Unspecified abdominal pain (principal); R93.8 Abnormal findings on diagnostic imaging of other specified body structures
CPT/HCPCS: 71045; 74177; 80053; 81001; 83690; 84703; 85025; 96361; 96374; 96375; 99284; J1170; J2270; J2405; J7040; Q9967